=== PATIENT | male | born 1945 | race Caucasian/White ===

== ENCOUNTER → 2018-04-26 08:15 | Outpatient (CLI) | payer OTHER, SELFPAY ==
[2018-04-26 09:13] LABS: Hemoglobin A1C% w Est Avg Glu 6.4 % (4.0-6.0)
[2018-04-26 09:21] LABS: Add Manual Diff / Slide Review NO; Basophils Percent Auto 0.3 % (0-2); Eosinophils Percent Auto 3.4 % (2-4); Hematocrit 45.8 % (41-53); Hemoglobin 15.5 g/dL (13.5-17.5); Lymphocytes Percent Auto 26.5 % (25-40); Mean Corpuscular HGB Conc 33.7 % (30-36); Mean Corpuscular Hemoglobin 30.5 PG (26-34); Mean Corpuscular Volume 90.6 fL (80-100); Monocytes Percent Auto 8.6 % (3-14); Neutrophils Absolute Auto 3000 /uL (3000-5900); Neutrophils Percent Auto 61.2 % (50-75); Platelet Count 189 X10^3/uL (150-400); Red Blood Cell Count 5.06 X10^6/uL (4.5-5.9); Red Cell Distribution Width 13.4 % (11.6-14.8); White Blood Cell Count 4.8 X10^3/uL (4.5-11.0)
[2018-04-26 09:23] LABS: Alanine Aminotransferase 29 IU/L (21-72); Albumin 4.4 g/dL (3.5-5.0); Albumin Globulin Ratio 1.8 (1.0-2.8); Alkaline Phosphatase 56 U/L (38-126); Aspartate Aminotransferase 24 IU/L (17-59); BUN Creatinine Ratio 24.3 (6-22); Bilirubin Total 1.1 mg/dL (0.2-1.3); Blood Urea Nitrogen 17 mg/dL (9-20); Calcium 9.5 mg/dL (8.4-10.2); Carbon Dioxide 29 mmol/L (22-32); Chloride 103 mmol/L (98-107); Cholesterol 190 mg/dL (140-199); Estimated Glomerular Filt Rate > 60.0 mL/min (>60); Globulin 2.5 g/dL (1.7-4.1); Glucose 117 mg/dL (80-110); HDL Cholesterol 42 mg/dL (40-60); HEMOLYSIS 16 (0-50); LDL Cholesterol Calculated 103 mg/dL (<100); Potassium 4.3 mmol/L (3.4-5.1); Sodium 143 mmol/L (137-145); Total Protein 6.9 g/dL (6.3-8.2); Triglycerides 225 mg/dL (35-150)
[2018-04-26 09:52] LABS: Prostate Specific Antigen Scrn 1.96 ng/mL (0.1-4.0)
== END ==
PROVIDERS: PCP Family Medicine; Visit Provider Family Medicine
DX: E78.2 Mixed hyperlipidemia (principal); E03.9 Hypothyroidism, unspecified; Z12.5 Encounter for screening for malignant neoplasm of prostate; E11.9 Type 2 diabetes mellitus without complications
CPT/HCPCS: 36415; 80053; 80061; 83036; 84443; 85025; G0103

== ENCOUNTER 2019-02-08 08:27 | Emergency (ER) | payer OTHER, SELFPAY ==
[2019-02-08 08:30] VITALS: BP 128/85; PULSE 79; RESP 15; TEMP 36.4; O2SAT 95
--- NOTE | 2019-02-08 08:34 | DI.CT.S_ITS ---
PROCEDURE: CT HEAD/BRAIN WO CON INDICATIONS: code stroke balance problem started at 7am TECHNIQUE: Noncontrast 4.5 mm thick angled axial sections acquired from the foramen magnum to the vertex, with coronal and sagittal reformats. For radiation dose reduction, the following was used: automated exposure control, adjustment of mA and/or kV according to patient size. COMPARISON: None. FINDINGS: Image quality: Excellent. CSF spaces: Basal cisterns are patent. No extra-axial fluid collections. The ventricles are symmetric in size and shape. Brain: No intracranial bleeds or masses. There is cerebral volume loss for age, with resultant ventricular and sulcal prominence. There are periventricular and deep white matter chronic small vessel ischemic changes. There is intracranial internal carotid artery atherosclerosis. Skull and face: Calvarium and visualized facial bones appear intact, without suspicious lesions. Sinuses: Visualized sinuses and mastoids are clear. IMPRESSION: No CT evidence of acute intracranial pathology. Findings were reported to Dr. Ferrer in the ER at 8:53 AM on 02/08/19. Dictated by: Bijan Muhammad M.D. on 02/08/2019 at 8:51 Approved by: Bijan Muhammad M.D. on 02/08/2019 at 8:53
--- NOTE | 2019-02-08 08:37 | ED.NEUROSD ---
HPI - Neuro Symptoms/Deficit General Chief Complaint: Dizziness Stated Complaint: no balance Time Seen by Provider: 02/08/19 08:34 Source: patient Mode of arrival: wheelchair Limitations: no limitations History of Present Illness HPI Narrative: The patient is a 74-year-old male who presents with balance problem. Said he was watching TV show ended at 7:00 a.m. he got up and says he could not walk. He felt like his legs really were week and that he could not really stand. Denies any dizziness lightheadedness or syncopal episode. He has no numbness tingling. No facial drooping speech difficulty or vision problem. Does have a history of atrial fibrillation and takes full-dose aspirin daily. He is able to stand up from the wheelchair and walk to the [facility] without any assistance. He feels like it might be getting a little better but continues to feel like his balance is. Timing confirmed by: spouse Location: other Severity: mild Related Data Home Medications Medication Instructions Recorded Confirmed Coenzyme Q10 (#COQ(1010) #0 05/23/11 Fish Oil (#FISH OIL) 1 iu PO Q DAY #0 09/01/11 PSYLLIUM SEED (WITH SUGAR) 2 waf PO QDAY #0 09/01/11 (Metamucil Fiber Wafer) aspirin 325 mg PO QDAY #0 07/24/17 metoprolol succinate 25 mg PO QPM 02/08/19 02/08/19 metoprolol succinate [Toprol XL] 50 mg PO QAM 02/08/19 02/08/19 Previous Rx's Medication Instructions Recorded gabapentin 300 mg capsule 600 mg PO BEDTIME #360 cap 05/03/18 levothyroxine 50 mcg tablet 50 mcg PO QAM #90 tab 05/03/18 lovastatin 20 mg tablet 20 mg PO DAILY #90 tab 05/03/18 sildenafil (antihypertensive) 20 mg PO SEE INSTRUCTIONS #100 tab 07/05/18 [Revatio] Allergies Allergy/AdvReac Type Severity Reaction Status Date / Time Sulfa (Sulfonamide Allergy Mild HIVES Verified 02/08/19 08:36 Antibiotics) [SULFA (SULFONAMIDE ANTIBIOTICS)] Review of Systems Review of Systems ROS Unobtainable: All systems reviewed & are unremarkable except as noted in HPI and below Constitutional Denies chills, Denies fever(s), Denies lethargy and Denies weakness Eyes Denies change in vision, Denies eye discharge, Denies irritation and Denies loss of vision ENT Ears, Nose, Mouth, and Throat: Denies change in voice, Denies vertigo, Denies dizziness, Denies neck pain and Denies sore throat Cardiovascular Denies chest pain, Denies syncope, Denies irregular heart rhythm, Denies lightheadedness, Denies palpitations, Denies dyspnea, Denies dyspnea on exertion and Denies orthopnea Respiratory Denies cough, Denies dyspnea, Denies dyspnea on exertion and Denies wheezing Gastrointestinal Gastrointestinal: Denies abdominal pain, Denies change in bowel habits, Denies diarrhea, Denies nausea and Denies vomiting Genitourinary Denies hematuria, Denies flank pain, Denies urinary incontinence and Denies urinary urgency Musculoskeletal Denies neck pain Integumentary/Breasts Denies pruritus, Denies erythema, Denies rash and Denies wounds Neurologic Denies vertigo, Denies dizziness, Denies syncope, Denies loss of vision and Denies weakness Endocrine Denies palpitations Allergic/Immunologic Denies wheezing FOR[facility]LY [facility] Medical History Atrial fibrillation (Acute) Head and neck cancer (Chronic ~05/2004) Hearing deficit (Chronic) Hearing loss (Chronic ~2005) Skin cancer (Chronic ~04/2013) Vision disorder (Chronic) Chicken pox (Resolved ~1950) Fractures (Resolved) Measles (Resolved ~1951) Mumps (Resolved ~1952) Surgical History Anesthesia (Resolved) History of surgery (Resolved ~04/2011) History of surgery (Resolved ~05/2004) Status post hernia repair (~06/1999) Family History (Updated 06/23/14 @ 00:00 by Conversion Provider) Father Heart disease Stroke Mother Diabetes mellitus Social History Smoking Status: Never smoker Family History Father Heart disease Stroke Mother Diabetes mellitus Social History Smoking Status: Never smoker Exam Initial Vital Signs Initial Vital Signs: Vital Signs Temperature 97.5 F L 02/08/19 08:30 Pulse Rate 79 02/08/19 08:30 Respiratory Rate 15 02/08/19 08:30 Blood Pressure 128/85 02/08/19 08:30 Pulse Oximetry 95 02/08/19 08:30 GENERAL: Well-appearing, well-nourished and in no acute distress. HEENT: Head atraumatic,EOMI, pupils reactive, face symmetric CARDIOVASCULAR: Regular rate and rhythm without murmurs, rubs or gallops. RESPIRATORY: Breath sounds equal bilaterally, no wheezes rales or rhonchi. ABDOMEN: Soft, nontender. Normoactive bowel sounds all 4 quadrants. No guarding or rebound. RECTAL: Hemoccult-positive, no hemorrhoids, nontender : No CVA tenderness EXTREMITIES: Normal range of motion, no clubbing or edema. Neurovascularly intact NEUROLOGICAL: Alert and oriented x4.Normal gait and speech. Cranial nerves II through XII grossly intact. Good qjksim-te-fupu, good qaei-vq-xngi, strength equal bilaterally, no dysarthria or aphasia, sensation in tact to soft touch bilaterally, no visual changes, no facial droop SKIN: Warm, dry, no laceration, no petechiae, no rashes or lesions. Scores NIH Stroke Scale Level of Conciousness: Alert, keenly responsive Ask month/age: Answers both questions correctly. Open/close eyes, close hand: Performs both tasks correctly Best gaze horizontal: Normal Visual rausch: No visual loss Facial palsy: Normal symetrical movement Left arm drift: No drift for full 10 sec Right arm drift: No drift for full 10 sec Left leg drift: No drift for full 10 sec Right leg drift: No drift for full 10 sec Limb ataxia: Absent Sensory on face/arms/legs: Normal, no sensory loss Best language: No aphasia, normal Dysarthria: Normal Extinction or inattention: No abnormality Total NIH Stroke scale score: 0 Course Orders Ordered: Discontinued Medications Sodium Chloride (Normal Saline 0.9%) 1,000 mls @ 150 mls/hr IV CONT GASTON Last Infusion: 02/08/19 11:28 Dose: 0 mls/hr Admin: 02/08/19 09:34 Dose: 150 mls/hr Vital Signs - 8 hr 02/08/19 11:24 02/08/19 11:50 Pulse Rate 72 65 Respiratory Rate 20 20 Blood Pressure 136/88 Blood Pressure [Right Arm] 133/86 Pulse Oximetry 98 98 MDM - Neuro Symptoms/Deficit Lab Data Attestation: I reviewed the patient's lab results. Result diagrams: 02/08/19 08:35 02/08/19 08:35 Lab Results 02/08/19 02/08/19 02/08/19 Range/Units 08:35 08:35 08:35 WBC 5.3 (4.5-11.0) X10^3/uL RBC 4.96 (4.5-5.9) X10^6/uL Hgb 15.1 (13.5-17.5) g/dL Hct 45.5 (41-53) % MCV 91.7 (80-100) fL MCH 30.4 (26-34) PG MCHC 33.2 (30-36) % RDW 13.7 (11.6-14.8) % Plt Count 183 (150-400) X10^3/uL Neut % (Auto) 62.7 (50-75) % Lymph % (Auto) 25.5 (25-40) % White % (Auto) 8.3 (3-14) % Eos % (Auto) 2.9 (2-4) % Baso % (Auto) 0.6 (0-2) % Neut # (Auto) 3300 (6358-7404) /uL Lymph # (Auto) 1400 (0289-1327) /uL White # (Auto) 400 (0-900) /uL Eos # (Auto) 200 (0-450) /uL Baso # (Auto) 0 (0-100) /uL PT 12.0 (10.1-12.7) SECONDS INR 1.0 (0.9-1.3) APTT 30 (26.4-36.2) SECONDS Sodium 141 (137-145) mmol/L Potassium 4.0 (3.4-5.1) mmol/L Chloride 106 (98-107) mmol/L Carbon Dioxide 27 (22-32) mmol/L BUN 18 (9-20) mg/dL Creatinine 0.60 L (0.66-1.25) mg/dL Estimated GFR > 60.0 (>60) mL/min BUN/Creatinine Ratio 30.0 H (6-22) Glucose 117 H (80-110) mg/dL Calcium 9.4 (8.4-10.2) mg/dL Total Bilirubin 0.8 (0.2-1.3) mg/dL AST 22 (17-59) IU/L ALT 30 (21-72) IU/L Alkaline Phosphatase 50 (38-126) U/L Total Protein 6.7 (6.3-8.2) g/dL Albumin 4.4 (3.5-5.0) g/dL Globulin 2.3 (1.7-4.1) g/dL Albumin/Globulin Ratio 1.9 (1.0-2.8) Urine Dip Bedside Urine Glucose Negative Bedside Urine Bilirubin - Negative Bedside Urine Ketone - Negative Urine Specific [place] 1.015 Bedside Urine Occult Blood - Negative Bedside Urine pH 6.5 Bedside Urine Protein - Negative Bedside Urine Urobilinogen - Negative Bedside Urine Nitrite - Negative Bedside Urine Leukocytes - Negative Esterase Imaging Data CT scan - head: Radiologist's impression: PROCEDURE: CT HEAD/BRAIN WO CON INDICATIONS: code stroke balance problem started at 7am TECHNIQUE: Noncontrast 4.5 mm thick angled axial sections acquired from the foramen magnum to the vertex, with coronal and sagittal reformats. For radiation dose reduction, the following was used: automated exposure control, adjustment of mA and/or kV according to patient size. COMPARISON: None. FINDINGS: Image quality: Excellent. CSF spaces: Basal cisterns are patent. No extra-axial fluid collections. The ventricles are symmetric in size and shape. Brain: No intracranial bleeds or masses. There is cerebral volume loss for age, with resultant ventricular and sulcal prominence. There are periventricular and deep white matter chronic small vessel ischemic changes. There is intracranial internal carotid artery atherosclerosis. Skull and face: Calvarium and visualized facial bones appear intact, without suspicious lesions. Sinuses: Visualized sinuses and mastoids are clear. IMPRESSION: No CT evidence of acute intracranial pathology. Findings were reported to Dr. Ferrer in the ER at 8:53 AM on 02/08/19. Dictated by: Bijan Muhammad M.D. on 02/08/2019 at 8:51 Approved by: Bijan Muhmamad M.D. on 02/08/2019 at 8:53 MRI - head: Radiologist's impression: PROCEDURE: MR STROKE Pre- and post-contrast brain MRI, non-contrast brain MR angiogram, pre- and postcontrast neck MR angiogram INDICATIONS: balance problem TECHNIQUE: Brain: Noncontrast axial T1 spin echo, axial T2 fast spin echo, sagittal and axial FLAIR, coronal T2 fast spin echo, axial gradient echo, axial diffusion and ADC through the brain. After the administration of contrast, axial 3D VIBE of the cranial vasculature and brain. Brain MRA: Non-contrast 3-D time of flight MR angiogram, with multiple zzogosu-jnyjzjjow-acmrofqkii (MIP) reformats performed. Neck MRA: Axial and sagittal TruFISP through the neck. Coronal dynamic MR angiogram during administration of contrast in the arterial and venous phases, with 3-dimenstional sutffrf-deunecofn-ypagvktjas (MIP) reformats constructed from subtraction images. COMPARISON: [facility], CT, CT HEAD/BRAIN WO CON, 02/08/2019, 8:36. FINDINGS: Image quality: Excellent. BRAIN: CSF spaces: Ventricles are normal in size and shape. Basal cisterns are patent. No extra-axial fluid collections. Brain: No intracranial bleeds or mass effects. There is mild diffuse cerebral volume loss. There is a mild degree of patchy high FLAIR signal within the periventricular and subcortical white matter, consistent with small vessel ischemic disease. Lyle-white matter interface is normal. Diffusion weighted images show no acute ischemic insults. Brainstem demonstrates mild patchy FLAIR signal elevation within the natividad, consistent with small vessel ischemic disease, and otherwise appears normal. Normal intravascular flow voids are present. No abnormal intracranial enhancement. Skull and face: Calvarial marrow signal is normal. Orbits appear normal. Sinuses: Small amount of left mastoid fluid. Sinuses and mastoids are otherwise clear. BRAIN MR ANGIOGRAM: Anterior circulation: Intracranial internal carotid arteries are normal in size and enhancement. The flow within the paired anterior cerebral arteries is normal and symmetric. The flow within the middle cerebral arteries is normal and symmetric. The anterior communicating artery is seen. No stenoses, occlusions, or aneurysms. Posterior circulation: The visualized portions of the vertebral arteries demonstrate normal caliber, and join to form a normal appearing basilar artery. The flow within the posterior cerebral arteries is normal and symmetric. No stenoses, occlusions, or aneurysms. NECK MR ANGIOGRAM: Carotids: Great vessels demonstrate a conventional anatomy as they arise from the aortic arch. The origins of the common carotid arteries appear patent. The calibers and courses of both common carotid arteries are normal. The bifurcation regions appear normal bilaterally. The internal carotid arteries demonstrate normal course and caliber. Posterior circulation: The origins of the vertebral arteries appear patent. More superior portions of both vertebral arteries demonstrate normal course and caliber, and join to form a normal appearing basilar artery. Miscellaneous: Subclavian arteries appear patent. Pre-contrast images through the neck show no soft tissue abnormalities. IMPRESSION: BRAIN MRI: 1. No acute process. No recent infarct. 2. Volume loss and small vessel ischemic disease. 3. Small amount of left mastoid fluid. BRAIN MR ANGIOGRAM: Negative cerebral MR angiography. NECK MR ANGIOGRAM: 1. No internal carotid artery stenosis bilaterally. 2. Patent bilateral vertebral arteries. Dictated by: Pato Witt M.D. on 02/08/2019 at 9:59 ECG Data Attestation: I personally reviewed and interpreted this ECG as follows: Prior ECG tracings: available for review Interpretation: Atrial fibrillation rate [address] changes previous EKG is from 2010. He has known atrial fibrillation this is not new. MDM Narrative Medical decision making narrative: Patient ambulatory without any assistance he is no longer off balance. He was never dizzy has no focal deficits. MRI is negative. He has no real ataxia he did not have any really initially unclear exactly what happened. At this time patient can be discharged home. Discussed he is at risk for stroke with his atrial fibrillation. Discharge Plan Departure Patient Disposition: Home Clinical Impression: Ataxia Discharge Date/Time: 02/08/19 11:50 Interventions: ED Discharge Assessment Last Done: 02/08/19 11:50 Instructions: Acute Cerebellar Ataxia Activity Restrictions/Additional Instructions: *You have been diagnosed with balance problems *What to do: MRI and head CT are negative for stroke. Balance issue seems to be resolved. You are at risk for stroke with your atrial fibrillation *Continue to take medications as directed *Follow up with your primary care provider in 2-3 days *Return to ER if you should have worsening balance problems, weakness on 1 side speech difficulty vision changes, numbness or tingling or any new, worsening or concerning symptoms Prescriptions: No Action Coenzyme Q10 (#COQ(1010) Qty: 0 RF: 0 PSYLLIUM SEED (WITH SUGAR) (Metamucil Fiber Wafer) 2 waf PO QDAY Qty: 0 RF: 0 Fish Oil (#FISH OIL) 1 iu PO Q DAY Qty: 0 RF: 0 aspirin 325 MG tablet 325 mg PO QDAY Qty: 0 RF: 0 sildenafil (antihypertensive) [Revatio] 20 mg tablet 20 mg PO SEE INSTRUCTIONS Qty: 100 RF: 3 gabapentin [Neurontin] 300 mg capsule 600 mg PO BEDTIME Qty: 360 RF: 3 levothyroxine [Synthroid] 50 mcg tablet 50 mcg PO QAM Qty: 90 RF: 3 lovastatin 20 mg tablet 20 mg PO DAILY Qty: 90 RF: 3 metoprolol succinate 25 mg tablet extended release 24 hr 25 mg PO QPM RF: 0 metoprolol succinate [Toprol XL] 25 mg tablet extended release 24 hr 50 mg PO QAM RF: 0 Referrals: Adan Dorsey MD [Primary Care Provider] -
--- NOTE | 2019-02-08 08:40 | ED_ITS ---
HPI - Neuro Symptoms/Deficit General Chief Complaint: Dizziness Stated Complaint: no balance Time Seen by Provider: 02/08/19 08:34 Source: patient Mode of arrival: wheelchair Limitations: no limitations History of Present Illness HPI Narrative: The patient is a 74-year-old male who presents with balance problem. Said he was watching TV show ended at 7:00 a.m. he got up and says he could not walk. He felt like his legs really were week and that he could not really stand. Denies any dizziness lightheadedness or syncopal episode. He has no numbness tingling. No facial drooping speech difficulty or vision problem. Does have a history of atrial fibrillation and takes full-dose aspirin daily. He is able to stand up from the wheelchair and [facility] any assistance. He feels like it might be getting a little better but continues to feel like his balance is. Timing confirmed by: spouse Location: other Severity: mild Related Data Home Medications Medication Instructions Recorded Confirmed Coenzyme Q10 (#COQ(1010) #0 05/23/11 Fish Oil (#FISH OIL) 1 iu PO Q DAY #0 09/01/11 PSYLLIUM SEED (WITH SUGAR) 2 waf PO QDAY #0 09/01/11 (Metamucil Fiber Wafer) aspirin 325 mg PO QDAY #0 07/24/17 metoprolol succinate 25 mg PO QPM 02/08/19 02/08/19 metoprolol succinate [Toprol XL] 50 mg PO QAM 02/08/19 02/08/19 Previous Rx's Medication Instructions Recorded gabapentin 300 mg capsule 600 mg PO BEDTIME #360 cap 05/03/18 levothyroxine 50 mcg tablet 50 mcg PO QAM #90 tab 05/03/18 lovastatin 20 mg tablet 20 mg PO DAILY #90 tab 05/03/18 sildenafil (antihypertensive) 20 mg PO SEE INSTRUCTIONS #100 tab 07/05/18 [Revatio] Allergies Allergy/AdvReac Type Severity Reaction Status Date / Time Sulfa (Sulfonamide Allergy Mild HIVES Verified 02/08/19 08:36 Antibiotics) [SULFA (SULFONAMIDE ANTIBIOTICS)] Review of Systems Review of Systems ROS Unobtainable: All systems reviewed & are unremarkable except as noted in HPI and below Constitutional Denies chills, Denies fever(s), Denies lethargy and Denies weakness Eyes Denies change in vision, Denies eye discharge, Denies irritation and Denies loss of vision ENT Ears, Nose, Mouth, and Throat: Denies change in voice, Denies vertigo, Denies dizziness, Denies neck pain and Denies sore throat Cardiovascular Denies chest pain, Denies syncope, Denies irregular heart rhythm, Denies light headedness, Denies palpitations, Denies dyspnea, Denies dyspnea on exertion and Denies orthopnea Respiratory Denies cough, Denies dyspnea, Denies dyspnea on exertion and Denies wheezing Gastrointestinal Gastrointestinal: Denies abdominal pain, Denies change in bowel habits, Denies diarrhea, Denies nausea and Denies vomiting Genitourinary Denies hematuria, Denies flank pain, Denies urinary incontinence and Denies urinary urgency Musculoskeletal Denies neck pain Integumentary/Breasts Denies pruritus, Denies erythema, Denies rash and Denies wounds Neurologic Denies vertigo, Denies dizziness, Denies syncope, Denies loss of vision and Denies weakness Endocrine Denies palpitations Allergic/Immunologic Denies wheezing [facility] Medical History Atrial fibrillation (Acute) Head and neck cancer (Chronic ~05/2004) Hearing deficit (Chronic) Hearing loss (Chronic ~2005) Skin cancer (Chronic ~04/2013) Vision disorder (Chronic) Chicken pox (Resolved ~1950) Fractures (Resolved) Measles (Resolved ~1951) Mumps (Resolved ~1952) Surgical History Anesthesia (Resolved) History of surgery (Resolved ~04/2011) History of surgery (Resolved ~05/2004) Status post hernia repair (~06/1999) Family History (Updated 06/23/14 @ 00:00 by Conversion Provider) Father Heart disease Stroke Mother Diabetes mellitus Social History Smoking Status: Never smoker Family History Father Heart disease Stroke Mother Diabetes mellitus Social History Smoking Status: Never smoker Exam Initial Vital Signs Initial Vital Signs: Vital Signs Temperature 97.5 F L 02/08/19 08:30 Pulse Rate 79 02/08/19 08:30 Respiratory Rate 15 02/08/19 08:30 Blood Pressure 128/85 02/08/19 08:30 Pulse Oximetry 95 02/08/19 08:30 GENERAL: Well-appearing, well-nourished and in no acute distress. HEENT: Head atraumatic,EOMI, pupils reactive, face symmetric CARDIOVASCULAR: Regular rate and rhythm without murmurs, rubs or gallops. RESPIRATORY: Breath sounds equal bilaterally, no wheezes rales or rhonchi. ABDOMEN: Soft, nontender. Normoactive bowel sounds all 4 quadrants. No guarding or rebound. RECTAL: Hemoccult-positive, no hemorrhoids, nontender : No CVA tenderness EXTREMITIES: Normal range of motion, no clubbing or edema. Neurovascularly intact NEUROLOGICAL: Alert and oriented x4.Normal gait and speech. Cranial nerves II through XII grossly intact. Good ycohqr-an-vvze, good oenx-hf-vhoe, strength equal bilaterally, no dysarthria or aphasia, sensation in tact to soft touch bilaterally, no visual changes, no facial droop SKIN: Warm, dry, no laceration, no petechiae, no rashes or lesions. Scores NIH Stroke Scale Level of Conciousness: Alert, keenly responsive Ask month/age: Answers both questions correctly. Open/close eyes, close hand: Performs both tasks correctly Best gaze horizontal: Normal Visual rausch: No visual loss Facial palsy: Normal symetrical movement Left arm drift: No drift for full 10 sec Right arm drift: No drift for full 10 sec Left leg drift: No drift for full 10 sec Right leg drift: No drift for full 10 sec Limb ataxia: Absent Sensory on face/arms/legs: Normal, no sensory loss Best language: No aphasia, normal Dysarthria: Normal Extinction or inattention: No abnormality Total NIH Stroke scale score: 0 Course Orders Ordered: Discontinued Medications Sodium Chloride (Normal Saline 0.9%) 1,000 mls @ 150 mls/hr IV CONT GASTON Last Infusion: 02/08/19 11:28 Dose: 0 mls/hr Admin: 02/08/19 09:34 Dose: 150 mls/hr Vital Signs - 8 hr 02/08/19 11:24 02/08/19 11:50 Pulse Rate 72 65 Respiratory Rate 20 20 Blood Pressure 136/88 Blood Pressure [Right Arm] 133/86 Pulse Oximetry 98 98 MDM - Neuro Symptoms/Deficit Lab Data Attestation: I reviewed the patient's lab results. Result diagrams: 02/08/19 08:35 02/08/19 08:35 Lab Results 02/08/19 02/08/19 02/08/19 Range/Units 08:35 08:35 08:35 WBC 5.3 (4.5-11.0) X10^3/uL RBC 4.96 (4.5-5.9) X10^6/uL Hgb 15.1 (13.5-17.5) g/dL Hct 45.5 (41-53) % MCV 91.7 (80-100) fL MCH 30.4 (26-34) PG MCHC 33.2 (30-36) % RDW 13.7 (11.6-14.8) % Plt Count 183 (150-400) X10^3/uL Neut % (Auto) 62.7 (50-75) % Lymph % (Auto) 25.5 (25-40) % [place] % (Auto) 8.3 (3-14) % Eos % (Auto) 2.9 (2-4) % Baso % (Auto) 0.6 (0-2) % Neut # (Auto) 3300 (5674-7675) /uL Lymph # (Auto) 1400 (2720-6094) /uL [place] # (Auto) 400 (0-900) /uL Eos # (Auto) 200 (0-450) /uL Baso # (Auto) 0 (0-100) /uL PT 12.0 (10.1-12.7) SECONDS INR 1.0 (0.9-1.3) APTT 30 (26.4-36.2) SECONDS Sodium 141 (137-145) mmol/L Potassium 4.0 (3.4-5.1) mmol/L Chloride 106 (98-107) mmol/L Carbon Dioxide 27 (22-32) mmol/L BUN 18 (9-20) mg/dL Creatinine 0.60 L (0.66-1.25) mg/dL Estimated GFR > 60.0 (>60) mL/min BUN/Creatinine Ratio 30.0 H (6-22) Glucose 117 H (80-110) mg/dL Calcium 9.4 (8.4-10.2) mg/dL Total Bilirubin 0.8 (0.2-1.3) mg/dL AST 22 (17-59) IU/L ALT 30 (21-72) IU/L Alkaline Phosphatase 50 (38-126) U/L Total Protein 6.7 (6.3-8.2) g/dL Albumin 4.4 (3.5-5.0) g/dL Globulin 2.3 (1.7-4.1) g/dL Albumin/Globulin Ratio 1.9 (1.0-2.8) Urine Dip Bedside Urine Glucose Negative Bedside Urine Bilirubin - Negative Bedside Urine Ketone - Negative Urine Specific [place] 1.015 Bedside Urine Occult Blood - Negative Bedside Urine pH 6.5 Bedside Urine Protein - Negative Bedside Urine Urobilinogen - Negative Bedside Urine Nitrite - Negative Bedside Urine Leukocytes - Negative Esterase Imaging Data CT scan - head: Radiologist's impression: PROCEDURE: CT HEAD/BRAIN WO CON INDICATIONS: code stroke balance problem started at 7am TECHNIQUE: Noncontrast 4.5 mm thick angled axial sections acquired from the foramen magnum to the vertex, with coronal and sagittal reformats. For radiation dose reduction, the following was used: automated exposure control, adjustment of mA and/or kV according to patient size. COMPARISON: None. FINDINGS: Image quality: Excellent. CSF spaces: Basal cisterns are patent. No extra-axial fluid collections. The ventricles are symmetric in size and shape. Brain: No intracranial bleeds or masses. There is cerebral volume loss for age, with resultant ventricular and sulcal prominence. There are periventricular and deep white matter chronic small vessel ischemic changes. There is intracranial internal carotid artery atherosclerosis. Skull and face: Calvarium and visualized facial bones appear intact, without suspicious lesions. Sinuses: Visualized sinuses and mastoids are clear. IMPRESSION: No CT evidence of acute intracranial pathology. Findings were reported to Dr. Ferrer in the ER at 8:53 AM on 02/08/19. Dictated by: Bijan Muhammad M.D. on 02/08/2019 at 8:51 Approved by: Bijan Muhammad M.D. on 02/08/2019 at 8:53 MRI - head: Radiologist's impression: PROCEDURE: MR STROKE Pre- and post-contrast brain MRI, non-contrast brain MR angiogram, pre- and postcontrast neck MR angiogram INDICATIONS: balance problem TECHNIQUE: Brain: Noncontrast axial T1 spin echo, axial T2 fast spin echo, sagittal and axial FLAIR, coronal T2 fast spin echo, axial gradient echo, axial diffusion and ADC through the brain. After the administration of contrast, axial 3D VIBE of the cranial vasculature and brain. Brain MRA: Non-contrast 3-D time of flight MR angiogram, with multiple qdzteyh-txxztqpju-uuylrpnrss (MIP) reformats performed. Neck MRA: Axial and sagittal TruFISP through the neck. Coronal dynamic MR angiogram during administration of contrast in the arterial and venous phases, with 3- dimenstional hbkzsqv-rtckpxoez-msdnnqgyer (MIP) reformats constructed from subtraction images. COMPARISON: [facility], CT, CT HEAD/BRAIN WO CON, 02/08/2019, 8:36. FINDINGS: Image quality: Excellent. BRAIN: CSF spaces: Ventricles are normal in size and shape. Basal cisterns are patent. No extra-axial fluid collections. Brain: No intracranial bleeds or mass effects. There is mild diffuse cerebral volume loss. There is a mild degree of patchy high FLAIR signal within the periventricular and subcortical white matter, consistent with small vessel ischemic disease. Lyle- white matter interface is normal. Diffusion weighted images show no acute ischemic insults. Brainstem demonstrates mild patchy FLAIR signal elevation within the natividad, co nsistent with small vessel ischemic disease, and otherwise appears normal. Normal intravascular flow voids are present. No abnormal intracranial enhancement. Skull and face: Calvarial marrow signal is normal. Orbits appear normal. Sinuses: Small amount of left mastoid fluid. Sinuses and mastoids are otherwise clear. BRAIN MR ANGIOGRAM: Anterior circulation: Intracranial internal carotid arteries are normal in size and enhancement. The flow within the paired anterior cerebral arteries is normal and symmetric. The flow within the middle cerebral arteries is normal and symme tric. The anterior communicating artery is seen. No stenoses, occlusions, or aneurysms. Posterior circulation: The visualized portions of the vertebral arteries demonstrate normal caliber, and join to form a normal appearing basilar artery. The flow within the posterior cerebral arteries is normal and symmetric. No stenoses, occlusions, or aneurysms. NECK MR ANGIOGRAM: Carotids: Great vessels demonstrate a conventional anatomy as they arise from the aortic arch. The origins of the common carotid arteries appear patent. The calibers and courses of both common carotid arteries are normal. The bifurcation regions appear normal bilaterally. The internal carotid arteries demonstrate normal course and caliber. Posterior circulation: The origins of the vertebral arteries appear patent. More superior portions of both vertebral arteries demonstrate normal course and caliber, and join to form a normal appearing basilar artery. Miscellaneous: Subclavian arteries appear patent. Pre-contrast images through the neck show no soft tissue abnormalities. IMPRESSION: BRAIN MRI: 1. No acute process. No recent infarct. 2. Volume loss and small vessel ischemic disease. 3. Small amount of left mastoid fluid. BRAIN MR ANGIOGRAM: Negative cerebral MR angiography. NECK MR ANGIOGRAM: 1. No internal carotid artery stenosis bilaterally. 2. Patent bilateral vertebral arteries. Dictated by: Pato Witt M.D. on 02/08/2019 at 9:59 ECG Data Attestation: I personally reviewed and interpreted this ECG as follows: Prior ECG tracings: available for review Interpretation: Atrial fibrillation rate [address] changes previous EKG is from 2010. He has known atrial fibrillation this is not new. [facility] Narrative Medical decision making narrative: Patient ambulatory without any assistance he is no longer off balance. He was never dizzy has no focal deficits. MRI is negative. He has no real ataxia he did not have any really initially unclear exactly what happened. At this time patient can be discharged home. Discussed he is at risk for stroke with his atrial fibrillation. Discharge Plan Departure Patient Disposition: Home Clinical Impression: Ataxia Discharge Date/Time: 02/08/19 11:50 Interventions: ED Discharge Assessment Last Done: 02/08/19 11:50 Instructions: Acute Cerebellar Ataxia Activity Restrictions/Additional Instructions: *You have been diagnosed with balance problems *What to do: MRI and head CT are negative for stroke. Balance issue seems to be resolved. You are at risk for stroke with your atrial fibrillation *Continue to take medications as directed *Follow up with your primary care provider in 2-3 days *Return to ER if you should have worsening balance problems, weakness on 1 side speech difficulty vision changes, numbness or tingling or any new, worsening or concerning symptoms Prescriptions: No Action Coenzyme Q10 (#COQ(1010) Qty: 0 RF: 0 PSYLLIUM SEED (WITH SUGAR) (Metamucil Fiber Wafer) 2 waf PO QDAY Qty: 0 RF: 0 Fish Oil (#FISH OIL) 1 iu PO Q DAY Qty: 0 RF: 0 aspirin 325 MG tablet 325 mg PO QDAY Qty: 0 RF: 0 sildenafil (antihypertensive) [Revatio] 20 mg tablet 20 mg PO SEE INSTRUCTIONS Qty: 100 RF: 3 gabapentin [Neurontin] 300 mg capsule 600 mg PO BEDTIME Qty: 360 RF: 3 levothyroxine [Synthroid] 50 mcg tablet 50 mcg PO QAM Qty: 90 RF: 3 lovastatin 20 mg tablet 20 mg PO DAILY Qty: 90 RF: 3 metoprolol succinate 25 mg tablet extended release 24 hr 25 mg PO QPM RF: 0 metoprolol succinate [Toprol XL] 25 mg tablet extended release 24 hr 50 mg PO QAM RF: 0 Referrals: Adan Dorsey MD [Primary Care Provider] -
[2019-02-08 08:51] LABS: Add Manual Diff / Slide Review NO; Basophils Absolute Auto 0 /uL (0-100); Basophils Percent Auto 0.6 % (0-2); Eosinophils Absolute Auto 200 /uL (0-450); Eosinophils Percent Auto 2.9 % (2-4); Hematocrit 45.5 % (41-53); Hemoglobin 15.1 g/dL (13.5-17.5); Lymphocytes Absolute Auto 1400 /uL (1100-4500); Lymphocytes Percent Auto 25.5 % (25-40); Mean Corpuscular HGB Conc 33.2 % (30-36); Mean Corpuscular Hemoglobin 30.4 PG (26-34); Mean Corpuscular Volume 91.7 fL (80-100); Monocytes Absolute Auto 400 /uL (0-900); Monocytes Percent Auto 8.3 % (3-14); Neutrophils Absolute Auto 3300 /uL (1500-7000); Neutrophils Percent Auto 62.7 % (50-75); Platelet Count 183 X10^3/uL (150-400); Red Blood Cell Count 4.96 X10^6/uL (4.5-5.9); Red Cell Distribution Width 13.7 % (11.6-14.8); White Blood Cell Count 5.3 X10^3/uL (4.5-11.0)
--- NOTE | 2019-02-08 08:54 | DI.MRI.S_ITS ---
PROCEDURE: MR STROKE Pre- and post-contrast brain MRI, non-contrast brain MR angiogram, pre- and postcontrast neck MR angiogram INDICATIONS: balance problem TECHNIQUE: Brain: Noncontrast axial T1 spin echo, axial T2 fast spin echo, sagittal and axial FLAIR, coronal T2 fast spin echo, axial gradient echo, axial diffusion and ADC through the brain. After the administration of contrast, axial 3D VIBE of the cranial vasculature and brain. Brain MRA: Non-contrast 3-D time of flight MR angiogram, with multiple eexlksl-hccootwge-mptwimqskt (MIP) reformats performed. Neck MRA: Axial and sagittal TruFISP through the neck. Coronal dynamic MR angiogram during administration of contrast in the arterial and venous phases, with 3-dimenstional ewzcokn-cljifeqhk-cyukhuwkye (MIP) reformats constructed from subtraction images. COMPARISON: [facility], CT, CT HEAD/BRAIN WO CON, 02/08/2019, 8:36. FINDINGS: Image quality: Excellent. BRAIN: CSF spaces: Ventricles are normal in size and shape. Basal cisterns are patent. No extra-axial fluid collections. Brain: No intracranial bleeds or mass effects. There is mild diffuse cerebral volume loss. There is a mild degree of patchy high FLAIR signal within the periventricular and subcortical white matter, consistent with small vessel ischemic disease. Lyle-white matter interface is normal. Diffusion weighted images show no acute ischemic insults. Brainstem demonstrates mild patchy FLAIR signal elevation within the natividad, consistent with small vessel ischemic disease, and otherwise appears normal. Normal intravascular flow voids are present. No abnormal intracranial enhancement. Skull and face: Calvarial marrow signal is normal. Orbits appear normal. Sinuses: Small amount of left mastoid fluid. Sinuses and mastoids are otherwise clear. BRAIN MR ANGIOGRAM: Anterior circulation: Intracranial internal carotid arteries are normal in size and enhancement. The flow within the paired anterior cerebral arteries is normal and symmetric. The flow within the middle cerebral arteries is normal and symmetric. The anterior communicating artery is seen. No stenoses, occlusions, or aneurysms. Posterior circulation: The visualized portions of the vertebral arteries demonstrate normal caliber, and join to form a normal appearing basilar artery. The flow within the posterior cerebral arteries is normal and symmetric. No stenoses, occlusions, or aneurysms. NECK MR ANGIOGRAM: Carotids: Great vessels demonstrate a conventional anatomy as they arise from the aortic arch. The origins of the common carotid arteries appear patent. The calibers and courses of both common carotid arteries are normal. The bifurcation regions appear normal bilaterally. The internal carotid arteries demonstrate normal course and caliber. Posterior circulation: The origins of the vertebral arteries appear patent. More superior portions of both vertebral arteries demonstrate normal course and caliber, and join to form a normal appearing basilar artery. Miscellaneous: Subclavian arteries appear patent. Pre-contrast images through the neck show no soft tissue abnormalities. IMPRESSION: BRAIN MRI: 1. No acute process. No recent infarct. 2. Volume loss and small vessel ischemic disease. 3. Small amount of left mastoid fluid. BRAIN MR ANGIOGRAM: Negative cerebral MR angiography. NECK MR ANGIOGRAM: 1. No internal carotid artery stenosis bilaterally. 2. Patent bilateral vertebral arteries. Dictated by: Pato Witt M.D. on 02/08/2019 at 9:59 Approved by: Pato Witt M.D. on 02/08/2019 at 10:06
[2019-02-08 08:55] LABS: PTT Partial Thromboplastin Tim 30 SECONDS (26.4-36.2)
[2019-02-08 08:59] LABS: Alanine Aminotransferase 30 IU/L (21-72); Albumin 4.4 g/dL (3.5-5.0); Albumin Globulin Ratio 1.9 (1.0-2.8); Alkaline Phosphatase 50 U/L (38-126); Aspartate Aminotransferase 22 IU/L (17-59); Bilirubin Total 0.8 mg/dL (0.2-1.3); Blood Urea Nitrogen 18 mg/dL (9-20); Calcium 9.4 mg/dL (8.4-10.2); Carbon Dioxide 27 mmol/L (22-32); Chloride 106 mmol/L (98-107); Estimated Glomerular Filt Rate > 60.0 mL/min (>60); Globulin 2.3 g/dL (1.7-4.1); Glucose 117 mg/dL (80-110); HEMOLYSIS < 15 (0-50); Sodium 141 mmol/L (137-145); Total Protein 6.7 g/dL (6.3-8.2)
[2019-02-08 09:09] VITALS: BP 137/91; PULSE 64; RESP 18; O2SAT 98
[2019-02-08] MEDS: SODIUM CHLORIDE 0.9% 1,000 ML 150 ML IV (09:34)
[2019-02-08 11:24] VITALS: BP 133/86; PULSE 72; RESP 20; O2SAT 98
[2019-02-08 11:50] VITALS: BP 136/88; PULSE 65; RESP 20; O2SAT 98
== END 2019-02-08 11:50 | disposition home or self-care (01) ==
PROVIDERS: Emergency Provider Emergency Medicine; Family Provider Family Medicine; PCP Family Medicine
DX: R27.0 Ataxia, unspecified (principal); R53.1 Weakness; Z79.82 Long term (current) use of aspirin
CPT/HCPCS: 36591; 70450; 70548; 70553; 80053; 81003; 85025; 85610; 85730; 93005; 96360; 96361; 99283; 99285; A9579

== ENCOUNTER → 2019-05-01 08:51 | Outpatient (CLI) | payer OTHER, SELFPAY ==
[2019-05-01 09:50] LABS: Add Manual Diff / Slide Review NO; Basophils Absolute Auto 0 /uL (0-100); Basophils Percent Auto 0.3 % (0-2); Eosinophils Absolute Auto 100 /uL (0-450); Eosinophils Percent Auto 2.3 % (2-4); Hematocrit 45.4 % (41-53); Hemoglobin 15.1 g/dL (13.5-17.5); Lymphocytes Absolute Auto 1100 /uL (1100-4500); Lymphocytes Percent Auto 25.2 % (25-40); Mean Corpuscular HGB Conc 33.4 % (30-36); Mean Corpuscular Hemoglobin 30.5 PG (26-34); Mean Corpuscular Volume 91.5 fL (80-100); Monocytes Absolute Auto 400 /uL (0-900); Monocytes Percent Auto 8.3 % (3-14); Neutrophils Absolute Auto 2700 /uL (1500-7000); Neutrophils Percent Auto 63.9 % (50-75); Platelet Count 170 X10^3/uL (150-400); Red Blood Cell Count 4.96 X10^6/uL (4.5-5.9); Red Cell Distribution Width 13.6 % (11.6-14.8); White Blood Cell Count 4.3 X10^3/uL (4.5-11.0)
[2019-05-01 10:41] LABS: Hemoglobin A1C% w Est Avg Glu 6.2 % (4.0-6.0)
[2019-05-01 10:48] LABS: Alanine Aminotransferase 28 IU/L (21-72); Albumin 4.3 g/dL (3.5-5.0); Albumin Globulin Ratio 1.8 (1.0-2.8); Alkaline Phosphatase 50 U/L (38-126); Aspartate Aminotransferase 26 IU/L (17-59); BUN Creatinine Ratio 21.4 (6-22); Bilirubin Total 1.2 mg/dL (0.2-1.3); Blood Urea Nitrogen 15 mg/dL (9-20); Calcium 9.1 mg/dL (8.4-10.2); Carbon Dioxide 28 mmol/L (22-32); Chloride 103 mmol/L (98-107); Cholesterol 177 mg/dL (140-199); Estimated Glomerular Filt Rate > 60.0 mL/min (>60); Globulin 2.4 g/dL (1.7-4.1); Glucose 114 mg/dL (80-110); HDL Cholesterol 43 mg/dL (40-60); HEMOLYSIS < 15 (0-50); LDL Cholesterol Calculated 102 mg/dL (<100); Sodium 141 mmol/L (137-145); Total Protein 6.7 g/dL (6.3-8.2); Triglycerides 162 mg/dL (35-150)
[2019-05-01 11:05] LABS: Prostate Specific Antigen 2.05 ng/mL (0.10-4.00)
[2019-05-01 11:09] LABS: Thyroid Stimulating Hormone 2.54 uIU/mL (0.47-4.68)
== END ==
PROVIDERS: PCP Family Medicine; Visit Provider Family Medicine
DX: E03.9 Hypothyroidism, unspecified (principal); E78.2 Mixed hyperlipidemia; I48.91 Unspecified atrial fibrillation; Z87.898 Personal history of other specified conditions
CPT/HCPCS: 36415; 80053; 80061; 83036; 84153; 84443; 85025

== ENCOUNTER → 2020-05-07 09:56 | Outpatient (CLI) | payer OTHER, SELFPAY ==
[2020-05-07 11:47] LABS: Add Manual Diff / Slide Review NO; Basophils Absolute Auto 0 /uL (0-100); Basophils Percent Auto 0.2 % (0-2); Eosinophils Absolute Auto 100 /uL (0-450); Eosinophils Percent Auto 3.5 % (2-4); Hematocrit 47.8 % (41-53); Hemoglobin 15.8 g/dL (13.5-17.5); Lymphocytes Absolute Auto 1100 /uL (1100-4500); Lymphocytes Percent Auto 27.7 % (25-40); Mean Corpuscular Hemoglobin 30.1 PG (26-34); Mean Corpuscular Volume 91.3 fL (80-100); Monocytes Absolute Auto 300 /uL (0-900); Monocytes Percent Auto 7.7 % (3-14); Neutrophils Absolute Auto 2400 /uL (1500-7000); Neutrophils Percent Auto 60.9 % (50-75); Platelet Count 188 X10^3/uL (150-400); Red Blood Cell Count 5.23 X10^6/uL (4.5-5.9); Red Cell Distribution Width 14.6 % (11.6-14.8)
[2020-05-07 12:06] LABS: HEMOLYSIS 15 (0-50)
[2020-05-07 12:16] LABS: Alanine Aminotransferase 30 IU/L (<50); Albumin 4.5 g/dL (3.5-5.0); Albumin Globulin Ratio 1.9 (1.0-2.8); Alkaline Phosphatase 52 U/L (38-126); Aspartate Aminotransferase 31 IU/L (17-59); BUN Creatinine Ratio 25.7 (6-22); Bilirubin Total 1.3 mg/dL (0.2-1.3); Blood Urea Nitrogen 18 mg/dL (9-20); Calcium 9.6 mg/dL (8.4-10.2); Carbon Dioxide 30 mmol/L (22-32); Chloride 101 mmol/L (98-107); Cholesterol 209 mg/dL (140-199); Estimated Glomerular Filt Rate > 60.0 mL/min (>60); Globulin 2.4 g/dL (1.7-4.1); Glucose 116 mg/dL (80-110); HDL Cholesterol 46 mg/dL (40-60); LDL Cholesterol Calculated 116 mg/dL (<100); Potassium 4.5 mmol/L (3.4-5.1); Sodium 139 mmol/L (137-145); Total Protein 6.9 g/dL (6.3-8.2); Triglycerides 233 mg/dL (35-150)
[2020-05-07 12:43] LABS: Thyroid Stimulating Hormone 2.58 uIU/mL (0.47-4.68)
== END ==
PROVIDERS: PCP Family Medicine; Referring Provider Family Medicine; Visit Provider Family Medicine
DX: E03.9 Hypothyroidism, unspecified (principal); E78.2 Mixed hyperlipidemia; I48.91 Unspecified atrial fibrillation; Z12.5 Encounter for screening for malignant neoplasm of prostate
CPT/HCPCS: 36415; 80053; 80061; 84153; 84443; 85025

== ENCOUNTER → 2020-06-01 15:29 | Outpatient (CLI) | payer OTHER, SELFPAY ==
[2020-06-01 21:58] LABS: COVID19 -Nasal RAPID Negative (Negative)
== END ==
PROVIDERS: PCP Family Medicine; Visit Provider Physician Assistant
DX: Z01.812 Encounter for preprocedural laboratory examination (principal)
CPT/HCPCS: 87635

== ENCOUNTER 2020-06-04 13:17 | Day surgery (SDC) | payer OTHER, SELFPAY ==
[2020-06-04 13:37] VITALS: BP 145/84; PULSE 80; RESP 16; TEMP 36.6; O2SAT 98; BMI 29.2
[2020-06-04] MEDS: LACTATED RINGERS 1,000 ML 200 ML IV (13:55)
--- NOTE | 2020-06-04 14:23 | PM.HP.1 ---
History of Present Illness History of Present Illness Date Patient Seen: 06/04/20 Time Patient Seen: 14:23 Chief complaint: NJC Narrative: The patient presents for colorectal sreening. They had multiple colonoscopies most recent 5 years ago, polyps which were removed. No personal or family history of colon cancer. On further history denies any recent gastrointestinal symptoms. No nausea, vomiting, abdominal pain, loss of appetite, unexplained weight loss, change in bowel habits, diarrhea, constipation, melena, hematochezia, or bright red blood per rectum. Patient History Medical History Atrial fibrillation (Acute) Chicken pox (Resolved ~1950) Fractures (Resolved) Head and neck cancer (Chronic ~05/2004) Hearing deficit (Chronic) Hearing loss (Chronic ~2005) Measles (Resolved ~1951) Mumps (Resolved ~1952) Skin cancer (Chronic ~04/2013) Skin lesion (Acute) Vision disorder (Chronic) Surgical History Anesthesia (Resolved) History of surgery (Resolved ~04/2011) History of surgery (Resolved ~05/2004) Status post hernia repair (~06/1999) Family & Social History Family History Father Heart disease Stroke Mother Diabetes mellitus Social History: household members spouse Tobacco & Substance use: Smoking Status Never smoker alcohol intake never Substance Use Type does not use Meds Home Medications and Allergies Home Medications Medication Instructions Recorded Confirmed Type Coenzyme Q10 (#COQ1010) 1 tab PO DAILY #0 05/23/11 06/04/20 History Fish Oil (#FISH OIL) 1 tab PO Q DAY #0 09/01/11 06/04/20 History aspirin 325 mg PO QDAY #0 07/24/17 06/04/20 History gabapentin 300 mg capsule 300 mg PO BEDTIME #360 cap 05/07/19 06/04/20 Rx metoprolol succinate 25 mg See Rx Instructions PO QAM #270 tab 11/07/19 05/14/20 Rx tablet,extended release 24 hr lovastatin 20 mg tablet See Rx Instructions .ROUTE 04/28/20 06/04/20 Rx .COMPLEX #90 tablet levothyroxine 50 mcg tablet See Rx Instructions .ROUTE 05/14/20 06/04/20 Rx .COMPLEX #90 tablet Allergies Allergy/AdvReac Type Severity Reaction Status Date / Time Sulfa (Sulfonamide Allergy Mild HIVES Verified 05/14/20 15:06 Antibiotics) [SULFA (SULFONAMIDE ANTIBIOTICS)] Review of Systems Review of Systems Narrative: A 10 point review of systems is negative except as noted in the HPI Exam Vital Signs (past 8 hours): - 06/04/20 13:37 Temperature 97.9 F Pulse Rate 80 Respiratory Rate 16 Blood Pressure 145/84 H Pulse Oximetry 98 Oxygen Delivery Method Room Air Narrative Exam Narrative: General-no acute distress, well nourished HEENT-moist mucous membranes, no scleral icterus Neck-supple, no lymphadenopathy Chest- non labored respirations, clear to auscultation bilaterally Cardiac-regular rate no peripheral edema Abdomen-soft, nontender, non distended Extremities-warm, well perfused Neurological-alert and oriented, no focal deficits Assessment & Plan Assessment & Plan narrative: The patient requires colorectal screening and colonoscopy is recommended. Technical details were discussed. Risks, benefits, alternatives explained. Risks including but not limited to myocardial infarction, aspiration, bleeding, pain, missed lesion, incomplete examination, need for further radiographic studies, colonic perforation, and need for major abdominal surgery were discussed. All questions were answered to their satisfaction, and they are in agreement with this plan.
[2020-06-04] MEDS: MIDAZOLAM 5 MG/5 ML VIAL IV (14:28)
[2020-06-04] MEDS: fentaNYL 250 MCG/5 ML INJ IV (14:28)
--- NOTE | 2020-06-04 14:52 | PM.OP.ENDO ---
Operative Date/Time/Diagnoses Date of procedure: 06/04/20 Time of procedure: 14:53 Pre-op diagnosis: History polyps Post-op diagnosis: same Procedure & Clinicians Study performed: Colonoscopy Same procedure as scheduled: Yes Indications: History of polyps here for screening colonoscopy Surgeon: Quinton Jackson Procedure Notes SCOAP/Timeout: Performed Procedure in detail: Patient placed in left lateral recumbent position. Time out was performed. Procedural sedation was administered with Versed and Fentanyl. Examination began with a thorough inspection of the perianal area there was no evidence of fissures, fistulae, external hemorrhoids or cutaneous malignancy. The colonoscopy scope was then placed into the rectum the the lumen was insufflated with air. The scope was carefully advanced forward. Ultimately the cecum was intubated and confirmed by identification of the ileocecal valve, the appendiceal orifice and the confluence of the taenia. The scope was then slowly withdrawn examining colon thoroughly in all directions. In the rectum the rectal columns were identified and retroflexion of the scope was performed for inspection of the distal rectum and anal canal. The colonoscopy was notable for the followin. Quality of the preparation-fair 2. No masses or polyps 3. Sigmoid diverticulosis Scope withdrawal time: 9 Sedation minutes: 24 Findings: diverticulosis and internal hemorrhoids Specimen(s): none sent Complications: none Impression: Normal colonoscopy Post-procedure Recommendations: Colonscopy in 10 years Disposition: same day surgery
[2020-06-04 14:56] VITALS: BP 125/86; PULSE 82; RESP 21; TEMP 36.8; O2SAT 98
[2020-06-04 15:01] VITALS: BP 131/73; PULSE 82; RESP 23; O2SAT 97
[2020-06-04 15:12] VITALS: BP 116/83; PULSE 84; RESP 16; TEMP 36.7; O2SAT 97
--- NOTE | 2020-06-04 15:31 | SUR.PHASEII ---
Pt ready to go, called, d/c instructions done when pt brought to car, both voiced an understanding, pt. Pt left in stable condition, belly soft, no nausea.
== END 2020-06-04 15:20 | disposition home or self-care (01) ==
PROVIDERS: PCP Family Medicine; Referring Provider Family Medicine; Visit Provider Surgery
PROC: 0DJD8ZZ Inspection of Lower Intestinal Tract, Via Natural or Artificial Opening Endoscopic (ICD-10-PCS; CPT 45378; principal; 2020-06-04 14:30)
DX: Z12.11 Encounter for screening for malignant neoplasm of colon (principal); Z86.010 Personal history of colon polyps; I48.91 Unspecified atrial fibrillation; K57.30 Diverticulosis of large intestine without perforation or abscess without bleeding; K64.8 Other hemorrhoids
CPT/HCPCS: G0105; 99152; J2250; J3010